=== PATIENT | female | born 1965 | race Caucasian/White ===

== ENCOUNTER 2021-04-10 13:08 | Emergency (ER) | payer BC ==
--- NOTE | 2021-04-10 13:19 | ER ---
Nurse's Notes [facility] Name: Jud Cavanaugh Age: 56 yrs Sex: Female : 1965 Arrival Date: 04/10/2021 Time: 13:10 Bed Waiting Private MD: Jacques Blackwood E Diagnosis: Historical: ED Course: 04/10 13:10 Patient arrived in ED. am2 13:10 Jacques Blackwood MD is Private Physician. am2 13:18 Rodriguez Gaming MD is Attending Physician. aa5 13:20 Triage completed. ph Administered Medications: No medications were administered Outcome: 13:18 Patient left the ED. aa5 Signatures: Dia Singh RN RN aa5 Maggie Damon RN RN Shanita Epstein am2 Corrections: (The following items were deleted from the chart) : 13:16 Chief complaint: Patient states: Dizziness, scratchy throat, fatigue, diarrhea, ph low grade fever, symptoms began about 3 days ago ph 13: 13:16 Coronavirus screen: diarrhea, nausea, sore throat, Client presents with at least ph one sign or symptom that may indicate coronavirus-19. Standard/surgical mask placed on the client. Provider contacted for isolation considerations. ph 13: 13:16 Ebola Screen: No symptoms or risks identified at this time. ph ph 13: 13:16 Initial Sepsis Screen: Does the patient meet any 2 criteria? No. Patient's ph initial sepsis screen is negative. Does the patient have a suspected source of infection? No. Patient's initial sepsis screen is negative. ph 13: 13:16 Risk Assessment: Do you want to hurt yourself or someone else? Patient reports no ph desire to harm self or others. ph 13: 13:16 Onset of symptoms was April 10, 2021 ph ph 13: 13:16 Method Of Arrival: Ambulatory ph ph 13: 13:16 BP 135 / 90; Pulse 86bpm; Resp 18bpm; Pulse Ox 97% RA; Temp 98.7F; 90.72 kg; ph Height 6 ft. 6 in.; BMI: 23.1; ph 13: 13:16 Acuity: ROSELYN 4 ph ph 13: 13:21 Arm band placed on right wrist. Patient placed ph ph 13:20 Allergies: No Known Allergies; ph ph 13:20 Home Meds: None; ph ph 13:20 PMHx: None; ph ph 13:20 PSHx: R arm; ph ph 13:20 Immunization history: Jina ph ph 13:20 Social history: Smoking status: Reported history of juuling and/or vaping. ph ph
== END 2021-04-10 13:18 | disposition left against medical advice (07) ==
LOC: ER 13:08
DX: Z02.9 Encounter for administrative examinations, unspecified (principal)
CPT/HCPCS: 99281